=== PATIENT | male | born 1980 | race Caucasian/White ===

== ENCOUNTER 2021-08-09 17:10 | Emergency (ER) | payer OTHER ==
[2021-08-09] MEDS ORDERED: HCTZ25 MG PO (18:38)
[2021-08-09 19:01] LABS: BASOPHIL 0.4 % (0-2); EOSINOPHIL 1.3 % (0-5); HGB 14.9 g/dl (13.2-18.0); LYMPHOCYTE 16.3 % (15-48); MCH 33.4 pg (25.0-31.0); MCHC 34.7 g/dL (32.0-36.0); MCV 96.4 fL (78.0-100.0); MPV 8.4 fL (6.0-9.5); NEUTROPHIL 76.8 % (41-80); NRBC 0; PLT 343 K/uL (150-400); RBC 4.46 M/uL (4.70-6.00); RDW 11.7 % (11.5-14.0); WBC 12.6 K/uL (4.0-10.5)
[2021-08-09 19:34] LABS: BUN 9 mg/dL (7-18); BUN/CREAT RATIO (CALC) 10.5 RATIO; CHLORIDE 102 mmol/L (98-107); CO2 (BICARBONATE) 27 mmol/L (21-32); CREATININE 0.86 mg/dL (0.67-1.17); GLUCOSE 107 mg/dL (74-106); POTASSIUM 3.6 mmol/L (3.5-5.1)
== END 2021-08-09 20:31 | disposition home or self-care (01) ==
LOC: FER 17:10
PROVIDERS: Nurse Practitioner Family
DX: I10 Essential (primary) hypertension (principal)
CPT/HCPCS: 36415; 71045; 80048; 84484; 85025; 93005

== ENCOUNTER 2022-01-25 13:02 | Emergency (ER) | payer OTHER ==
[~2022-01-25 13:02] MED LIST: HCTZ25 MG PO
[2022-01-25 14:44] LABS: BASOPHIL 0.5 % (0-2); HCT 47.8 % (42.0-52.0); HGB 16.7 g/dl (13.2-18.0); LYMPHOCYTE 13.8 % (15-48); MCH 34.2 pg (25.0-31.0); MCHC 34.9 g/dL (32.0-36.0); MCV 97.8 fL (78.0-100.0); MONOCYTE 5.3 % (0-12); MPV 8.5 fL (6.0-9.5); NRBC 0; PLT 336 K/uL (150-400); RBC 4.89 M/uL (4.70-6.00); RDW 12.4 % (11.5-14.0); WBC 12.8 K/uL (4.0-10.5)
[2022-01-25 14:46] LABS: BILIRUBIN NEGATIVE (NEGATIVE); BLOOD NEGATIVE Ery/uL (NEGATIVE); CLARITY CLEAR (CLEAR); COLOR YELLOW (YELLOW); GLUCOSE (U) NORMAL (NORMAL); LEUKOCYTES NEGATIVE Leu/uL (NEGATIVE); NITRITE NEGATIVE (NEGATIVE); PROTEIN NEGATIVE (NEGATIVE); SPECIFIC GRAVITY 1.015 (1.001-1.030); UROBILINOGEN 0.2 mg/dL (0.2-1.0)
[2022-01-25 14:55] LABS: URINARY RBC RARE; URINARY WBC RARE
[2022-01-25 14:57] LABS: BACTERIA TRACE
[2022-01-25 14:58] LABS: MUCOUS MODERATE; SQUAMOUS EPITHELIAL CELLS RARE
[2022-01-25 16:54] LABS: ALBUMIN 3.1 g/dL (3.4-5.0); ALKALINE PHOSHATASE 78 U/L (46-116); ALT 24 U/L (16-63); AST 23 U/L (15-37); BILIRUBIN - TOTAL 0.5 mg/dL (0.2-1.0); BUN 4 mg/dL (7-18); BUN/CREAT RATIO (CALC) 4.5 RATIO; CHLORIDE 101 mmol/L (98-107); CO2 (BICARBONATE) 21 mmol/L (21-32); CREATININE 0.89 mg/dL (0.67-1.17); GLOBULIN (CALCULATION) 3.9 g/dL; GLUCOSE 100 mg/dL (74-106); POTASSIUM 4.8 mmol/L (3.5-5.1)
== END 2022-01-25 18:20 | disposition home or self-care (01) ==
LOC: FER 13:02
PROVIDERS: Emergency Medicine
DX: R51.9 Headache, unspecified (principal); F10.99 Alcohol use, unspecified with unspecified alcohol-induced disorder; I10 Essential (primary) hypertension; F17.210 Nicotine dependence, cigarettes, uncomplicated; Y90.0 Blood alcohol level of less than 20 mg/100 ml; Z88.8 Allergy status to other drugs, medicaments and biological substances; Z79.899 Other long term (current) drug therapy; Z28.310 Unvaccinated for COVID-19
CPT/HCPCS: 36415; 80053; 81001; 85025; 99284; G0480; J1885; J2405; J7030